=== PATIENT | male | born 1985 | race Caucasian/White ===

== ENCOUNTER 2019-04-12 22:44 | Emergency (ER) | payer SELFPAY ==
[~2019-04-12] VITALS: Ht 167.6 cm; Wt 100.0 kg
[2019-04-12 22:47] VITALS: Ht 167.6 cm; Wt 100.0 kg
[2019-04-13] MEDS ORDERED: POLY10DR RIGHT EYE (00:33)
[2019-04-13] MEDS ORDERED: IBUP-1561 PO (00:35)
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
== END 2019-04-13 00:42 | disposition home or self-care (01) ==
LOC: FTE 22:44
DX: T54.3X1A Toxic effect of corrosive alkalis and alkali-like substances, accidental (unintentional), initial encounter (principal)
CPT/HCPCS: 99283